=== PATIENT | male | born 1995 | race Two or more races ===

== ENCOUNTER 2018-11-18 16:48 | Emergency (ER) | payer OTHER ==
[~2018-11-18] VITALS: Ht 167.6 cm; Wt 63.6 kg
[2018-11-18 18:38] LABS: BASO % 0.3 % (0.0-1.0); EOS # 0.1 10^3/uL (0.0-0.50); EOS % 1.3 % (0.0-3.0); HEMATOCRIT 44.1 % (42.0-52.0); HEMOGLOBIN 14.9 g/dl (13.5-17.5); LYMPH # 1.6 10^3/uL (1.5-6.5); LYMPH % 26.4 % (24.0-44.0); MEAN CORPUSCULAR HEMOGLOBIN 29.1 pg (27.0-33.0); MEAN CORPUSCULAR HGB CONC 33.8 g/dl (32.0-36.5); MEAN CORPUSCULAR VOLUME 86.1 fl (80.0-96.0); MONO # 0.4 10^3/uL (0.0-0.8); NEUTROPHILS # 3.9 10^3/uL (1.8-7.7); NEUTROPHILS % 64.7 % (36.0-66.0); PLATELET COUNT, AUTOMATED 243 10^3/uL (150-450); RED BLOOD COUNT 5.12 10^6/uL (4.30-6.10); WHITE BLOOD COUNT 6.1 10^3/uL (4.0-10.0)
[2018-11-18 19:08] LABS: ALBUMIN 4.7 GM/DL (3.2-5.2); ALT/SGPT 24 U/L (12-78); BILIRUBIN,DIRECT 0.4 MG/DL (0.0-0.2); BILIRUBIN,TOTAL 1.6 MG/DL (0.2-1.0); BLOOD UREA NITROGEN 12 MG/DL (7-18); CALCIUM LEVEL 9.8 MG/DL (8.5-10.1); CARBON DIOXIDE LEVEL 29 MEQ/L (21-32); CHLORIDE LEVEL 106 MEQ/L (98-107); CREATININE FOR GFR 1.28 MG/DL (0.70-1.30); GLOMERULAR FILTRATION RATE > 60.0 (>60); GLUCOSE, FASTING 102 MG/DL (70-100); POTASSIUM SERUM 4.4 MEQ/L (3.5-5.1); SODIUM LEVEL 140 MEQ/L (136-145); TOTAL PROTEIN 7.9 GM/DL (6.4-8.2)
[2018-11-18] MEDS ORDERED: NS 1,000 ML IV ONE (20:15)
[2018-11-18 20:32] LABS: CK-MB VALUE MASS 1.3 NG/ML (<3.6); CPK CREATINE PHOSPHOKINASE 203 U/L (39-308); FREE T4 1.15 NG/DL (0.76-1.46); MAGNESIUM LEVEL 2.5 MG/DL (1.8-2.4); MB/CK RELATIVE INDEX 0.64 (< OR =4); TROPONIN I < 0.02 NG/ML (< 0.10)
--- NOTE | 2018-11-18 20:48 | REPVR ---
EXAM: CT Head Without Contrast EXAM DATE/TIME: 11/18/2018 8:08 PM CLINICAL HISTORY: 23 years old, male; Syncope and collapse TECHNIQUE: Imaging protocol: Computed tomography images of the head without contrast. Radiation optimization: All CT scans at this facility use at least one of these dose optimization techniques: automated exposure control; mA and/or kV adjustment per patient size (includes targeted exams where dose is matched to clinical indication); or iterative reconstruction. COMPARISON: No relevant prior studies available. FINDINGS: Brain: Unremarkable. No hemorrhage. No significant white matter disease. No edema. Ventricles: Unremarkable. No ventriculomegaly. Bones/joints: Unremarkable. No acute fracture. Sinuses: Visualized sinuses are unremarkable. No fluid levels. Mastoid air cells: Visualized mastoid air cells are well aerated. No mastoid effusion. Soft tissues: Unremarkable. IMPRESSION: No acute abnormality. Electronically signed by: Luis Jolly On 11/18/2018 20:48:14 PM
--- NOTE | 2018-11-18 20:52 | REPVR ---
EXAM: CT Cervical Spine Without Contrast EXAM DATE/TIME: 11/18/2018 8:08 PM CLINICAL HISTORY: 23 years old, male; Injury or trauma; Fall; Initial encounter; Blunt trauma; Additional info: Syncope TECHNIQUE: Imaging protocol: Computed tomography images of the cervical spine without contrast. Coronal and sagittal reformatted images were created and reviewed. Radiation optimization: All CT scans at this facility use at least one of these dose optimization techniques: automated exposure control; mA and/or kV adjustment per patient size (includes targeted exams where dose is matched to clinical indication); or iterative reconstruction. COMPARISON: No relevant prior studies available. FINDINGS: Vertebrae: No acute fracture. Normal alignment. Discs/Spinal canal/Neural foramina: No raquel spinal stenosis. No bony neural foraminal narrowing. Soft tissues: Unremarkable. Lungs: Lung apices are clear. IMPRESSION: No acute findings. Electronically signed by: Luis Jolly On 11/18/2018 20:51:34 PM
--- NOTE | 2018-11-18 21:21 | REPVR ---
EXAM: US Abdomen Limited, Right Upper Quadrant EXAM DATE/TIME: 11/18/2018 9:05 PM CLINICAL HISTORY: 23 years old, male; Abdominal pain; Epigastric; Additional info: Ruq pain/vomiting TECHNIQUE: Imaging protocol: Real-time ultrasound of the abdomen with image documentation. Examination was focused on the right upper quadrant. COMPARISON: No relevant prior studies available. FINDINGS: Liver: Unremarkable as visualized. No masses. Gallbladder: Normal. No gallstones. There is no gallbladder wall thickening. Common bile duct: Normal. No stones. No dilation. The common bile duct measures 3.4 mm. Pancreas: The pancreas is inadequate to visualize secondary to overlying bowel gas and limited sonographic penetration. Right kidney: Unremarkable. No mass. No hydronephrosis. IMPRESSION: No acute findings. Electronically signed by: Luis Jolly On 11/18/2018 21:20:45 PM
[2018-11-19 01:11] VITALS: BP 119/68
--- NOTE | 2018-11-20 07:56 | ECGEPIP ---
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
== END 2018-11-19 01:13 | disposition home or self-care (01) ==
LOC: M ED 16:48
DX: R55 Syncope and collapse (principal); R10.11 Right upper quadrant pain; R11.10 Vomiting, unspecified; R00.1 Bradycardia, unspecified; B19.20 Unspecified viral hepatitis C without hepatic coma; R53.83 Other fatigue; M54.2 Cervicalgia; F17.210 Nicotine dependence, cigarettes, uncomplicated

== ENCOUNTER 2018-11-26 16:46 | Emergency (ER) | payer OTHER ==
[~2018-11-26] VITALS: Ht 167.6 cm; Wt 63.6 kg
[2018-11-26 17:37] LABS: HEMATOCRIT 41.5 % (42.0-52.0); MEAN CORPUSCULAR HEMOGLOBIN 29.6 pg (27.0-33.0); MEAN CORPUSCULAR HGB CONC 33.7 g/dl (32.0-36.5); MEAN CORPUSCULAR VOLUME 87.7 fl (80.0-96.0); PLATELET COUNT, AUTOMATED 213 10^3/uL (150-450); RED BLOOD COUNT 4.73 10^6/uL (4.30-6.10)
[2018-11-26 18:07] LABS: ALBUMIN 4.2 GM/DL (3.2-5.2); ALT/SGPT 21 U/L (12-78); BILIRUBIN,TOTAL 0.4 MG/DL (0.2-1.0); BLOOD UREA NITROGEN 10 MG/DL (7-18); CARBON DIOXIDE LEVEL 28 MEQ/L (21-32); CHLORIDE LEVEL 105 MEQ/L (98-107); CREATININE FOR GFR 0.99 MG/DL (0.70-1.30); GLOMERULAR FILTRATION RATE > 60.0 (>60); GLUCOSE, FASTING 83 MG/DL (70-100); POTASSIUM SERUM 3.7 MEQ/L (3.5-5.1); SODIUM LEVEL 140 MEQ/L (136-145); TOTAL PROTEIN 6.9 GM/DL (6.4-8.2)
[2018-11-26] MEDS ORDERED: ISOVUE-370 76% 100ML VIAL (Q9967) As Ordered ONE (20:22)
--- NOTE | 2018-11-26 20:25 | ECGEPIP ---
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
[2018-11-26 21:04] LABS: HEMOGLOBIN A1c 5.5 %
[2018-11-26 22:15] VITALS: BP 118/83
--- NOTE | 2018-11-26 22:58 | REPVR ---
EXAM: CT Abdomen and Pelvis With Contrast EXAM DATE/TIME: 11/26/2018 9:05 PM CLINICAL HISTORY: 23 years old, male; Abdominal pain; Generalized; Additional info: Abd pain/vomiting TECHNIQUE: Imaging protocol: Axial computed tomography images of the abdomen and pelvis with intravenous contrast. Coronal and sagittal reformatted images were created and reviewed. Radiation optimization: All CT scans at this facility use at least one of these dose optimization techniques: automated exposure control; mA and/or kV adjustment per patient size (includes targeted exams where dose is matched to clinical indication); or iterative reconstruction. Contrast material: ISOVUE 370;Contrast volume: 100 ml;Contrast route: IV; COMPARISON: US Abdomen 11/18/2018 9:01 PM FINDINGS: Lungs: Clear lung bases. Heart: Normal size heart. No evidence of pericardial effusion. Liver: Normal appearing liver. Gallbladder and bile ducts: Normal common bile duct. Normal gallbladder. Pancreas: Normal pancreas. Spleen: Normal appearing spleen. Adrenals: Normal adrenal glands. Kidneys and ureters: There is opacification of the right and left kidney. Stomach and bowel: The cecum is in the right pelvis. There is no evidence of inflammation along the margins of the cecum. Small amount of secretions and small bowel which may be the result of mild ileus or enteritis. Intraperitoneal space: There is no evidence of pneumoperitoneum. There is no evidence of free fluid in the abdomen or pelvis. Vasculature: There is opacification of the aorta which appears intact. Lymph nodes: There are a few small lymph nodes scattered throughout the mesentery. Small lymph nodes are following the aorta. Bladder: Moderate distention of the urinary bladder. Reproductive: Normal size prostate. Small cyst in the prostate. Bones/joints: No acute fracture. No dislocation. Soft tissues: Unremarkable. IMPRESSION: 1. Mild amount of secretions and small bowel could be mild ileus or enteritis. 2. Moderate distention of the urinary bladder. 3. Scattered small lymph nodes in the mesentery on the right could be due to adenitis. Electronically signed by: Chai Lino On 11/26/2018 22:57:25 PM
[2018-11-26 23:17] LABS: AMPHETAMINES LEVEL URINE NEGATIVE (NEGATIVE); BARBITURATES URINE NEGATIVE (NEGATIVE); BENZODIAZEPINES URINE NEGATIVE (NEGATIVE); CANNABINOIDS URINE NEGATIVE (NEGATIVE); COCAINE METABOLITE URINE NEGATIVE (NEGATIVE); METHADONE URINE NEGATIVE (NEGATIVE); OPIATES URINE NEGATIVE (NEGATIVE); PHENCYCLIDINE URINE NEGATIVE (NEGATIVE)
== END 2018-11-26 23:54 | disposition home or self-care (01) ==
LOC: M ED 16:46
DX: K52.9 Noninfective gastroenteritis and colitis, unspecified (principal); B19.20 Unspecified viral hepatitis C without hepatic coma
CPT/HCPCS: 36415; 74177; 80053; 80307; 81001; 83036; 85027; 93005; 99284; Q9967

== ENCOUNTER → 2018-12-09 | Outpatient (REF) | payer OTHER ==
[2018-12-09 14:18] LABS: ALBUMIN 4.7 GM/DL (3.2-5.2); ALT/SGPT 23 U/L (12-78); BILIRUBIN,DIRECT 0.3 MG/DL (0.0-0.2); BILIRUBIN,TOTAL 1.3 MG/DL (0.2-1.0); C REACTIVE PROTEIN QUANTITATIV < 0.30 MG/DL (0.00-0.30); TOTAL PROTEIN 7.8 GM/DL (6.4-8.2)
[2018-12-14 14:58] LABS: HEPATITIS C QUANTITATION HCV Not Detected IU/mL (.); Lyme Disease IgG/IgM Antibodie <0.91 ISR (0.00-0.90); Lyme Disease IgM Ab Quantitati <0.80 index (0.00-0.79)
== END ==
LOC: M SFHCPLAZ 10:00
PROVIDERS: ATTEND Internal Medicine Infectious Disease
DX: R10.13 Epigastric pain (principal); G44.52 New daily persistent headache (NDPH)
CPT/HCPCS: 36415; 80076; 85652; 86140; 86617; 86803; 87522; 87902; G0463

== ENCOUNTER 2019-02-27 08:52 | Inpatient (IN) | payer OTHER ==
[~2019-02-27] VITALS: Ht 167.6 cm; Wt 63.6 kg
[2019-02-27 09:47] LABS: HEMATOCRIT 42.7 % (42.0-52.0); HEMOGLOBIN 13.7 g/dl (13.5-17.5); MEAN CORPUSCULAR HEMOGLOBIN 28.8 pg (27.0-33.0); MEAN CORPUSCULAR HGB CONC 32.1 g/dl (32.0-36.5); MEAN CORPUSCULAR VOLUME 89.7 fl (80.0-96.0); PLATELET COUNT, AUTOMATED 259 10^3/uL (150-450); RED BLOOD COUNT 4.76 10^6/uL (4.30-6.10); WHITE BLOOD COUNT 4.2 10^3/uL (4.0-10.0)
[2019-02-27 10:25] LABS: AMPHETAMINES LEVEL URINE NEGATIVE (NEGATIVE); BARBITURATES URINE NEGATIVE (NEGATIVE); BENZODIAZEPINES URINE NEGATIVE (NEGATIVE); CANNABINOIDS URINE NEGATIVE (NEGATIVE); COCAINE METABOLITE URINE NEGATIVE (NEGATIVE); METHADONE URINE NEGATIVE (NEGATIVE); OPIATES URINE NEGATIVE (NEGATIVE); PHENCYCLIDINE URINE NEGATIVE (NEGATIVE)
[2019-02-27 10:36] LABS: ACETAMINOPHEN LEVEL < 2.0 UG/ML (10.0-30.0); ALBUMIN 4.1 GM/DL (3.2-5.2); ALT/SGPT 27 U/L (12-78); BILIRUBIN,DIRECT 0.2 MG/DL (0.0-0.2); BILIRUBIN,TOTAL 0.6 MG/DL (0.2-1.0); BLOOD UREA NITROGEN 16 MG/DL (7-18); CALCIUM LEVEL 9.1 MG/DL (8.5-10.1); CARBON DIOXIDE LEVEL 27 MEQ/L (21-32); CHLORIDE LEVEL 107 MEQ/L (98-107); CREATININE FOR GFR 1.05 MG/DL (0.70-1.30); ETHYL ALCOHOL (ETHANOL) < 0.003 % (0.000-0.010); GLOMERULAR FILTRATION RATE > 60.0 (>60); GLUCOSE, FASTING 79 MG/DL (70-100); SALICYLATE LEVEL < 1.7 MG/DL (5.0-30.0); SODIUM LEVEL 140 MEQ/L (136-145); THYROID STIMULATING HORMONE 0.951 uIU/ML (0.358-3.740); TOTAL PROTEIN 7.1 GM/DL (6.4-8.2)
[2019-02-27] MEDS ORDERED: MAALOX 30 ML SUSP *UDC PO PRN (12:00)
[2019-02-27] MEDS ORDERED: ACETAMINOPHEN TAB 650MG DOSE (2X325MG) PO PRN (12:00)
[2019-02-27] MEDS ORDERED: traZODone 50 MG TAB PO PRN (12:00)
[2019-02-27] MEDS ORDERED: MOM 30ML SUSPENSION UDC PO PRN (12:00)
[2019-02-27 13:52] VITALS: BP 114/70
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
[2019-02-28 06:42] VITALS: BP 128/75
[2019-02-28] MEDS: hydrOXYzine 25 MG TAB PO PRN ×2 (12:55→18:56)
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
[2019-02-28] MEDS ORDERED: SERTRALINE HCL 25 MG TABLET PO ONE (13:00)
[2019-02-28 15:29] VITALS: BP 118/59
[2019-03-01 06:51] VITALS: BP 145/70
[2019-03-01] MEDS ORDERED: SERTRALINE HCL 25 MG TABLET PO SCH (09:00)
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
[2019-03-01 18:15] VITALS: BP 139/65
[2019-03-02 06:35] VITALS: BP 112/62
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
[2019-03-02] MEDS: hydrOXYzine 25 MG TAB PO PRN (09:19)
[2019-03-02] MEDS: SERTRALINE HCL 25 MG TABLET PO SCH (20:34)
[2019-03-03 06:47] VITALS: BP 135/67
--- NOTE | 2019-03-03 10:17 | MHIPNPDOC ---
[facility] Progress Note Progress Note DATE OF SERVICE: 03/03/19 HISTORY: Patient is a 23 -year-old Mixed, AD, male, with no previous psych history who was brought to [facility] by MP after pt called suicide hotline from the [facility] endorsing SI. Once in ED pt endorsed depression, anxiety, insomnia, poor appetite, isolation to the [facility] for the past 4months due to psychological stressors of being accidently diagnosed with HIV in 12/2018 while at [facility] (tested again and it's negative), recent Article 15 for passing counterfeit money he found on the ground, guilt over friend passing away in MVA due to drug abuse recently, dislike for the , and his mother not listening to him just telling him "you're homesick" when he talks to her on the phone. Stated the day prior to admission he attempted to walk infront of traffic but a car going by missed him and having thoughts of SI with plan to OD on pain meds and tylenol in the ED, per ED. Pt seen and he endorses depression mostly due to current psychological stressors. Also endorses stage fright anxiety as recently yelled at by [place] when had to read fire document out loud. Endorses low confidence due to thoughts others may be having about him. Discussed starting zoloft for depression and prn vistaril for anxiety, risks/benefits discussed. Talk to pt regarding coping mechanisms for his low confidence to other people's thoughts of him and encouraged pt to attend groups to learn coping mechanisms for anxiety and depre ssion. Currently, denies SI/HI, hallucination, delusions. Feels safe here. VITAL SIGNS: See below. NEW TEST RESULTS: See below. CURRENT MEDICATIONS: See below. MENTAL STATUS EXAMINATION: General Appearance: well groomed, appears stated age, hospital scrubs/clothing Build: average Demeanor: average Eye Contact: average Activity: average, less anxious Behavior: cooperative Speech: clear, spontaneous, reg/rate,rhythm,volume Mood: more euthymic, less anxious Mood "good" Affect: more full, congruent, less anxious Thought Process: logical/linear, less depressed, intact Thought Content (Delusions): none reported, denies SI, HI, AVH Thought Content (Other): none reported, appropriate Thought Content (Aggressive): none reported Perception (Hallucinations): none reported Perception (Other): none reported Cognition (Impairment of): none reported Cognition(Intelligence Est.): average Oriented: Awake, Alert, Oriented times three Insight: fair Judgment: Fair Psychosis: Denies DIAGNOSES: Depression Unspecified Anxiety Unspecified ASSESSMENT:Pt seen and states that his mood is "good" today and that his anxiety continues to improve, only taking vistaril once yesterday. States he attending groups and learning coping mechanisms that he finds helpful. 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 Feels that he's tolerating zoloft and feels is beneficial. States he slept well last night. Feels he is tolerating his medications and they're beneficial. He denies SI/HI, hallucinations, delusions. Pt feels safe here. MANAGEMENT PLAN: d/c tomorrow medications: zoloft 25mg qhs vistaril 25 mg q6hr prn anxiety trazodone 50mg qhs prn insomnia TIME SPENT: 30 minutes. Vital Signs Vital Signs Date Time Temp Pulse Resp B/P (MAP) Pulse Ox O2 Delivery O2 Flow Rate FiO2 03/03/19 06:47 99.6 73 12 135/67 (89) Room Air 02/27/19 09:13 97 Current Medications Current Medications Medications (Trade) Dose Ordered Sig/Sunshine Route PRN Reason Start Time Stop Time Status Last Admin Dose Admin Acetaminophen (Tylenol Tab) 650 mg Q6HP PRN PO HEADACHE or DISCOMFORT 02/27/19 12:00 03/01/19 20:00 Al Hydrox/Mg Hydrox/Simethicone (Mylanta) 30 ml Q4HP PRN PO HEARTBURN/INDIGESTION 02/27/19 12:00 Home Med (Med Rec Complete!) ASDIRECTED XX 02/27/19 10:30 02/27/19 10:26 DC Hydroxyzine HCl (Atarax) 25 mg Q6HP PRN PO ANXIETY 02/28/19 12:30 03/02/19 09:19 Magnesium Hydroxide (Milk Of Magnesia) 30 ml DAILYPRN PRN PO CONSTIPATION 02/27/19 12:00 Sertraline HCl (Zoloft) 25 mg DAILY PO 03/01/19 09:00 03/01/19 09:19 DC 03/01/19 08:23 Sertraline HCl (Zoloft) 25 mg QHS PO 03/02/19 21:00 03/02/19 20:34 Trazodone HCl (Desyrel) 50 mg QHSP PRN PO INSOMNIA 02/27/19 12:00 Allergies Coded Allergies: No Known Allergies (Unverified , 11/18/18) GANESH SEAMAN DO Mar 03, 2019 10:17 am
[2019-03-03] MEDS: hydrOXYzine 25 MG TAB PO PRN (15:47)
[2019-03-03 18:00] VITALS: BP 138/76
[2019-03-03] MEDS: SERTRALINE HCL 25 MG TABLET PO SCH (21:15)
[2019-03-04 06:21] VITALS: BP 119/63
[2019-03-04] MEDS ORDERED: HYDR-3363 PO (09:40)
[2019-03-04] MEDS ORDERED: SERT25TA21 PO (09:40)
[2019-03-04] MEDS ORDERED: TRAZ-252 PO (09:40)
--- NOTE | 2019-03-04 09:41 | MHDSPDOC ---
[facility] Discharge Summary Discharge Summary DATE OF ADMISSION: Feb 27, 2019 at 11:54 am DATE OF DISCHARGE: Mar 04, 2019 DISCHARGE DIAGNOSES: Depression Unspecified Anxiety Unspecified REASON FOR ADMISSION: Patient is a 23 -year-old Mixed, AD, male, with no previous psych history who was brought to [facility] by MP after pt called suicide hotline from the [facility] endorsing SI. Once in ED pt endorsed depression, anxiety, insomnia, poor appetite, isolation to the [facility] for the past 4months due to psychological stressors of being accidently diagnosed with HIV in 12/2018 while at [facility] (tested again and it's negative), recent Article 15 for passing counterfeit money he found on the ground, guilt over friend passing away in MVA due to drug abuse recently, dislike for the , and his mother not listening to him just telling him "you're homesick" when he talks to her on the phone. Stated the day prior to admission he attempted to walk in front of traffic but a car going by missed him and having thoughts of SI with plan to OD on pain meds and tylenol in the ED, per ED. Pt seen and he endorses depression mostly due to current psychological stressors. Also endorses stage fright anxiety as recently yelled at by [place] when had to read fire document out loud. Endorses low confidence due to thoughts others may be having about him. Discussed starting zoloft for depression and prn vistaril for anxiety, risks/benefits discussed. Talk to pt regarding coping mechanisms for his low confidence to other people's thoughts of him and encouraged pt to attend groups to learn coping mechanisms for anxiety and depression. Currently, denies SI/HI, hallucination, delusions. Feels safe here. CONSULTANTS INVOLVED: none TREATMENT AND PROGRESS ON THE UNIT :Pt was admitted to [facility], seen for psychiatric assessment and started on zoloft 25mg daily for mood and anxiety. He was provided vistaril 25mg q6hr prn anxiety and trazodone 50mg qhs prn insomnia. Pt found his medications beneficial and tolerated them well. He attended groups daily during his stay. His symptoms improved with treatment. On day of discharge he denied depression, anxiety, insomnia, SI/HI, hallucinations, delusions. He was discharged home after [place] meeting with foll ow-up at [facility]. He felt safe for discharge with his [place]. DISCHARGE ASSESSMENT: Pt seen and states that his mood is "good" and that he's looking forward to going home with his [place] today. States his anxiety and mood are greatly improved with treatment. States he attending groups and learning coping mechanisms that he finds helpful. 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 Feels that he's tolerating zoloft and vistaril wel and feels they're beneficial. States he slept well last night. He denies depression, anxiety, insomnia, SI/HI, hallucinations, delusions. Pt feels safe to d/c home with his [place] today. MENTAL STATUS EXAMINATION ON DISCHARGE: General Appearance: well groomed, appears stated age, hospital scrubs/clothing Build: average Demeanor: average Eye Contact: average Activity: average Behavior: cooperative Speech: clear, spontaneous, reg/rate,rhythm,volume Mood: euthymic, full range Mood "good" Affect: full range, congruent Thought Process: logical/linear, intact Thought Content (Delusions): none reported, denies SI, HI, AVH Thought Content (Other): none reported, appropriate Thought Content (Aggressive): none reported Perception (Hallucinations): none reported Perception (Other): none reported Cognition (Impairment of): none reported Cognition(Intelligence Est.): average Oriented: Awake, Alert, Oriented times three Insight: good Judgment: good Psychosis: Denies MEDICATIONS ON DISCHARGE: zoloft 25mg daily vistaril 25mg q6hr prn anxiety trazodone 50mg qhs prn insomnia PLAN/FOLLOWUP ARRANGEMENTS: D/c home with [place] with follow-up FD. The amount of time spent in the coordination of care for this patient was approximately 30 minutes. Vital Signs/I&Os Vital Signs Date Time Temp Pulse Resp B/P (MAP) Pulse Ox O2 Delivery O2 Flow Rate FiO2 03/04/19 06:21 98.8 63 16 119/63 (81) 03/03/19 06:47 Room Air 02/27/19 09:13 97 Medications Scheduled Sertraline HCl (Sertraline HCl) 25 Mg Tablet, 25 MG PO QHS for mood, #10 Scheduled PRN Hydroxyzine HCl (Hydroxyzine HCl) 25 Mg Tablet, 25 MG PO Q6HP PRN for ANXIETY, #30 Trazodone HCl (Trazodone HCl) 50 Mg Tablet, 50 MG PO QHSP PRN for INSOMNIA, #10 Allergies Coded Allergies: No Known Allergies (Unverified , 11/18/18) GANESH SEAMAN DO Mar 04, 2019 9:41 am
== END 2019-03-04 10:30 | disposition home or self-care (01) | DRG 881 ==
LOC: M ED 08:52 → M ED INP 11:54 → M PSY 13:19
PROVIDERS: ADMIT Psychiatry & Neurology Psychiatry; ATTEND Psychiatry & Neurology Psychiatry
DX: F32.9 Major depressive disorder, single episode, unspecified (principal); F41.9 Anxiety disorder, unspecified; Z87.891 Personal history of nicotine dependence

== ENCOUNTER 2019-03-08 09:24 | Inpatient (IN) | payer OTHER ==
[~2019-03-08] VITALS: Ht 167.6 cm; Wt 60.5 kg
[~2019-03-08 09:24] MED LIST: HYDR-3363 PO; SERT25TA21 PO; TRAZ-252 PO
[2019-03-08] MEDS ORDERED: IBUPROFEN 800 MG TAB PO ONE (10:30)
[2019-03-08] MEDS ORDERED: ONDANSETRON 4 MG ORAL DISINTEGRATING TAB (Q0162 PER 1MG) PO ONE (10:30)
[2019-03-08 10:47] LABS: BASO % 0.2 % (0.0-1.0); EOS # 0.1 10^3/uL (0.0-0.5); EOS % 1.3 % (0.0-3.0); HEMATOCRIT 43.1 % (42.0-52.0); HEMOGLOBIN 14.2 g/dl (13.5-17.5); LYMPH # 1.8 10^3/uL (1.5-5.0); MEAN CORPUSCULAR HEMOGLOBIN 29.3 pg (27.0-33.0); MEAN CORPUSCULAR HGB CONC 32.9 g/dl (32.0-36.5); MEAN CORPUSCULAR VOLUME 88.9 fl (80.0-96.0); MONO # 0.4 10^3/uL (0.0-0.8); MONO % 7.9 % (0.0-5.0); NEUTROPHILS # 2.6 10^3/uL (1.5-8.5); NEUTROPHILS % 53.2 % (36.0-66.0); PLATELET COUNT, AUTOMATED 245 10^3/uL (150-450); RED BLOOD COUNT 4.85 10^6/uL (4.30-6.10); WHITE BLOOD COUNT 4.8 10^3/uL (4.0-10.0)
[2019-03-08 11:18] LABS: ACETAMINOPHEN LEVEL < 2.0 UG/ML (10.0-30.0); ALBUMIN 4.2 GM/DL (3.2-5.2); ALT/SGPT 36 U/L (12-78); BILIRUBIN,DIRECT 0.2 MG/DL (0.0-0.2); BILIRUBIN,TOTAL 0.8 MG/DL (0.2-1.0); BLOOD UREA NITROGEN 16 MG/DL (7-18); CALCIUM LEVEL 9.3 MG/DL (8.5-10.1); CARBON DIOXIDE LEVEL 27 MEQ/L (21-32); CHLORIDE LEVEL 106 MEQ/L (98-107); CREATININE FOR GFR 1.11 MG/DL (0.70-1.30); GLOMERULAR FILTRATION RATE > 60.0 (>60); GLUCOSE, FASTING 82 MG/DL (70-100); POTASSIUM SERUM 3.9 MEQ/L (3.5-5.1); SALICYLATE LEVEL < 1.7 MG/DL (5.0-30.0); SODIUM LEVEL 141 MEQ/L (136-145); TOTAL PROTEIN 7.5 GM/DL (6.4-8.2)
[2019-03-08 12:11] LABS: ETHYL ALCOHOL (ETHANOL) < 0.003 % (0.000-0.010)
[2019-03-08 12:17] LABS: AMPHETAMINES LEVEL URINE NEGATIVE (NEGATIVE); BARBITURATES URINE NEGATIVE (NEGATIVE); BENZODIAZEPINES URINE NEGATIVE (NEGATIVE); CANNABINOIDS URINE NEGATIVE (NEGATIVE); COCAINE METABOLITE URINE NEGATIVE (NEGATIVE); METHADONE URINE NEGATIVE (NEGATIVE); OPIATES URINE NEGATIVE (NEGATIVE); PHENCYCLIDINE URINE NEGATIVE (NEGATIVE)
[2019-03-08] MEDS ORDERED: IBUPROFEN 600 MG TAB PO ONE (13:45)
--- NOTE | 2019-03-08 14:16 | ED PDOC ---
Provider Note David Hogan MRN: N/A Date of : N/A Date of Service: 03/08/2019 Summary The patient was met with for a [id number]. Shortly, the patient is a 23-year-old man with a reported history of depression, presenting recently after being discharged from Dr. Kuo' service. He reports having some visual hallucinations after being started on sertraline, however these are indescript. He does report increasing depression with suicidal thoughts, jump in front of a car. He describes that these have gotten worse and more intense and that he is unclear of how to deal with them. He appears dysthymic and tired, curled up in a ball in the ER at this time. Mental Status Exam: The patient is laying in bed, poor hygiene, dysthymic affect, linear thought process. Admits to suicidal thoughts. Denies homicidal thoughts, auditory hallucinations. Appears to have limited insight and judgment. Concentration and focus appear to be mildly impaired. No MSK or neurological defects found. His associations and perception appear clear. He is alert and oriented x3. Assessment and Plan: Unspecified depression: Will admit out of an abundance of caution and restart on home medications to assess further. Does not appear to be demonstrating signs of visual hallucinations. Will ascertain whether there is any concern for malingering, as this is a potential concern due to his current pending Article 15. Time spent: 25 minutes. RashmiOLENA Betancourt DO Mar 08, 2019 14:16
[2019-03-08] MEDS ORDERED: HYDR-3363 PO (14:35)
[2019-03-08] MEDS ORDERED: SERT25TA21 PO (14:35)
[2019-03-08] MEDS ORDERED: TRAZ1TAB10 PO (14:35)
[2019-03-08] MEDS ORDERED: MOM 30ML SUSPENSION UDC PO PRN (15:00)
[2019-03-08] MEDS ORDERED: ACETAMINOPHEN TAB 650MG DOSE (2X325MG) PO PRN (15:00)
[2019-03-08] MEDS ORDERED: MAALOX 30 ML SUSP *UDC PO PRN (15:00)
[2019-03-08 15:35] VITALS: BP 139/60
[2019-03-08] MEDS: traZODone 50 MG TAB PO PRN (20:26)
[2019-03-08] MEDS: SERTRALINE HCL 25 MG TABLET PO SCH (20:26)
[2019-03-09 06:55] VITALS: BP 106/59
--- NOTE | 2019-03-09 08:47 | ECGEPIP ---
[facility] - ED Test Date: 2019-03-08 Pat Name: ELIAS HAMMONDS Department: Room: - Gender: Male Crane Engineer: : 1995 Requested By: DC RUFFIN PA-C. Order Number: [id number] Reading MD: Rafi Colunga Measurements Intervals [place] Rate: 52 P: 64 IA: 187 QRS: 74 QRSD: 90 T: 70 QT: 473 QTc: 441 Interpretive Statements SINUS BRADYCARDIA BENIGN EARLY REPOLARIZATION SIMILAR TO 11/26/18 Electronically Signed on 03-09-2019 8:46:42 EST by Rafi Colunga
--- NOTE | 2019-03-09 10:08 | MHHPEPDOC ---
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 The patient is admitted out of an abundance of caution, has his chain of command does report that he is quite isolative and does not engage. The patient was recently admitted due to similar problem started on sertraline. The patient when met with does describe some vague symptoms of depression such as hopelessness, helplessness, insomnia, and difficulty coping with stressors. When I met with the patient interestingly enough he had reported that he had no side effects from his sertraline once he had came to our unit. He has been more social and engaged with other patients on the unit. However, he does still have a dysthymic affect at times. He reports fleeting suicidal thoughts at times. There has been concerns raised that he could be presenting for secondary gain as he is potentially being discharged from the under article 15 for forgery. The patient reports vague auditory hallucinations that he is unable to describe that does appear consistent with any psychotic phenomenon. Otherwise, the patient reports that he is amenable to staying over the weekend. Review Of Systems Depression: As above. Anxiety: The patient denies any excessive worry associated with physical symptoms. They deny any experience of discreet panic in the past. Jeri: The patient denies any episodes of euphoria/dysphoria associated with decreased need for sleep, hedonism, talkatively or impulsivity lasting longer than 5 days. Psychotic: As above. Trauma: The patient denies any traumatic events associated with nightmares or intrusive thoughts. Borderline: The patient screens negative for borderline personality at this junction. Past Psychiatric History Has a history of reported suicidal gestures of "walking in front of a car" several years ago. He has no other admissions other than the aforementioned admission several days ago and is currently on sertraline, hydroxyzine, and trazodone. His previous diagnoses appear to unspecified depression and anxiety. Allergies Please see below. Family Psychiatric History Social History The patient was born and raised in [place] by his mother with 2 siblings and reports a good childhood without trauma or violence. Currently lives in the [facility], high school grad, [employer], primary support by mother. Currently pending legal trouble for article 15 for counterfeit money. He is single, never with no children. Substance Abuse History The patient denies any excessive alcohol use, tobacco or illicit drug use, denies history of substance use treatment. Medical History Reports "short gut syndrome." Mental Status Examination General: Well dressed with good hygiene Speech: Spontaneous and fluid Thought processes: Linear and logical MSK: Smooth and coordinated gait, no signs of tremors or involuntary orofacial movements Thought content: Mild hopelessness. Abstract reasoning, and computation: Intact Description of associations: Intact Description of abnormal or psychotic thoughts: Admits to fleeting SI at times, but none at this moment. Denies homicidal ideations. Denies auditory or visual hallucinations at this point. Does not appear to be responding to internal stimuli. Judgment: fair Insight: fair Orientation: Alert and orientated 3 Cognition: Grossly normal Recent and remote memory: Intact Attention span and concentration: Intact Fund of knowledge: Adequate Mood: "okay" Affect: Mildly dysthymic with a constricted range. Diagnoses Unspecified depressive disorder. Assessment and Plan Unspecified depressive disorder: Continue sertraline, hydroxyzine, trazodone. Denies having side effects at this time. Unclear if malingering or if genuinely depressed due to situation. Disposition The patient will need a further inpatient admission likely lasting longer than 2 midnights in order to treat his suicidal thoughts and possible depression. Problem List 1. Risk for suicide. 2. Depression. 3. Ineffective coping. Initial Treatment Plan 1. Patient was admitted on a 9.39 legal status. 2. Complete history was obtained. 3. With patients permission, family will be contacted and database will be expanded. 4. Patients medication regimen will be reviewed and changed accordingly. 5. Patient will be provided with protected environment. 6. Patient will be treated with individual, group, and milieu therapies. 7. Patient will receive supportive psych-education. 8. Discharge planning will commence immediately. 9. Outpatient follow-up treatment will be strongly recommended. 10. The initial treatment plan will focus initially on: Estimated Length Of Stay 4 days. Time Spent 70 minutes. Thursday Vital Signs Vital Signs Date Time Temp Pulse Resp B/P (MAP) Pulse Ox O2 Delivery O2 Flow Rate FiO2 03/09/19 06:55 98.5 63 16 106/59 (75) 03/08/19 15:35 100 Room Air Laboratory Data 24H Labs Laboratory Tests 2 03/08/19 10:33: Immature Granulocyte % (Auto) 0.4, Neutrophils (%) (Auto) 53.2, Lymphocytes (%) (Auto) 37.0, Monocytes (%) (Auto) 7.9H, Eosinophils (%) (Auto) 1.3, Basophils (%) (Auto) 0.2, Neutrophils # (Auto) 2.6, Lymphocytes # (Auto) 1.8, Monocytes # (Auto) 0.4, Eosinophils # (Auto) 0.1, Basophils # (Auto) 0.0, Nucleated Red Blood Cells % (auto) 0.0, Anion Gap 8, Glomerular Filtration Rate > 60.0, Calcium Level 9.3, Total Bilirubin 0.8, Direct Bilirubin 0.2, Aspartate Amino Transf (AST/SGOT) 8, Alanine Aminotransferase (ALT/SGPT) 36, Alkaline Phosphatase 51, Total Protein 7.5, Albumin 4.2, Albumin/Globulin Ratio 1.27, Salicylates Level < 1.7L, Acetaminophen Level < 2.0L, Ethyl Alcohol Level < 0.003 03/08/19 11:30: Urine Opiates Screen NEGATIVE, Urine Methadone Screen NEGATIVE, Urine Bar biturates Screen NEGATIVE, Urine Phencyclidine Screen NEGATIVE, Urine Amphetamines Screen NEGATIVE, Urine Benzodiazepines Screen NEGATIVE, Urine Cocaine Metabolite Screen NEGATIVE, Urine Cannabinoids Screen NEGATIVE CBC/BMP Laboratory Tests 03/08/19 10:33 Medications Scheduled Sertraline HCl (Sertraline HCl) 25 Mg Tablet, 25 MG PO QHS, (Reported) Scheduled PRN Hydroxyzine HCl (Hydroxyzine HCl) 25 Mg Tablet, 25 MG PO Q6H PRN for ANXIETY, (Reported) Trazodone HCl (Trazodone HCl) 50 Mg Tablet, 50 MG PO QHS PRN for INSOMNIA, (Reported) Allergies Coded Allergies: No Known Allergies (Unverified , 11/18/18) OLENA TONY DO Mar 09, 2019 10:08
[2019-03-09] MEDS: hydrOXYzine 25 MG TAB PO PRN (12:09)
--- NOTE | 2019-03-09 12:53 | HPEPDOC ---
[facility] Medical History & Physical Date of Admission Mar 08, 2019 Date of Service: Mar 09, 2019 History and Physical CHIEF COMPLAINT: hearing voices HISTORY OF PRESENT ILLNESS: Patient is a 23M with no significant PMH presented to [facility] with complaints of hearing voices with reported thoughts of suicidal leanne ation. Stated that he heard voices putting him down for about an hour 2 days prior and had since resolved. He also complains of some muscle soreness from working out prior but otherwise denies any physical complaints including any pain, SOB, fever, chills. Also denies any current suicidal ideation. PAST MEDICAL HISTORY: Refer to [facility] PAST SURGICAL HISTORY: Surgery for short gut syndrome as an SOCIAL HISTORY: Denies tobacco, alcohol or illicit drug use. FAMILY HISTORY: Mother- DM and CAD ALLERGIES: Please see below. REVIEW OF SYSTEMS: 10 point review of system negative except as stated in HPI HOME MEDICATIONS: Please see below. PHYSICAL EXAMINATION: General: No acute distress, Alert Eyes: Normal sclera, EOMI, MILAD[place] HENT: Atraumatic, neck supple, moist mucous membranes Cardiovascular: Normal rate, normal rhythm. No murmurs appreciated. Pulmonary: Clear to auscultation b/l, no wheezing GI: Soft, nontender, nondistended Skin: Warm and dry Neuro: CN grossly intact. No focal deficits. Strengths equal b/l. Psych: oriented x 3 LABORATORY DATA: See below. MICROBIOLOGY: Please see below. ASSESSMENT AND PLAN: 1. Hallucinations - stress vs. anxiety/depression. - Evaluation and treatment per Psych. - Denies active suicidal ideation at this time. Patient has no physical complaints or known chronic medical problems. Will sign off, please call back should anything arise. Vital Signs Vital Signs Date Time Temp Pulse Resp B/P (MAP) Pulse Ox O2 Delivery O2 Flow Rate FiO2 03/09/19 10:19 Room Air 03/09/19 06:55 98.5 63 16 106/59 (75) 03/08/19 15:35 100 Home Medications Scheduled Sertraline HCl (Sertraline HCl) 25 Mg Tablet, 25 MG PO QHS Scheduled PRN Hydroxyzine HCl (Hydroxyzine HCl) 25 Mg Tablet, 25 MG PO Q6H PRN for ANXIETY Trazodone HCl (Trazodone HCl) 50 Mg Tablet, 50 MG PO QHS PRN for INSOMNIA Allergies Coded Allergies: No Known Allergies (Unverified , 11/18/18) A-FIB/CHADSVASC A-FIB History Current/History of A-Fib/PAF?: No SHIVANI PAPPAS MD Mar 09, 2019 12:53
[2019-03-09 17:04] VITALS: BP_SYST 117; BP_SYST 128; BP_DIAS 52; BP_DIAS 69
[2019-03-09] MEDS: SERTRALINE HCL 25 MG TABLET PO SCH (20:20)
[2019-03-09] MEDS: traZODone 50 MG TAB PO PRN (22:44)
[2019-03-10 05:52] VITALS: BP 126/56
--- NOTE | 2019-03-10 09:50 | MHIPNPDOC ---
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 The patient is admitted out of an abundance of caution, has his chain of command does report that he is quite isolative and does not engage. The patient was recently admitted due to similar problem started on sertraline. The patient when met with does describe some vague symptoms of depression such as hopelessness, helplessness, insomnia, and difficulty coping with stressors. When I met with the patient interestingly enough he had reported that he had no side effects from his sertraline once he had came to our unit. He has been more social and engaged with other patients on the unit. However, he does still have a dysthymic affect at times. He reports fleeting suicidal thoughts at times. There has been concerns raised that he could be presenting for secondary gain as he is potentially being discharged from the under article 15 for forgery. The patient reports vague auditory hallucinations that he is unable to describe that does appear consistent with any psychotic phenomenon. Otherwise, the patient reports that he is amenable to staying over the weekend. Interval History The patient is met with today. He reports that he is doing somewhat better and that his suicidal ideation is slowly resolving. He still reports feeling depressed and hopeless at times and that he had found that one of his family members had , making him more upset. He has had no major behavioral problems. He has been compliant with treatment and has been attending groups consistently. Review Of Systems General: Denies fever or appetite changes Cardiovascular: Denies Chest pain or palpitations GI: Denies Nausea, vomiting, or bowel changes Respiratory: Denies shortness of breath or cough Neuro: Denies dizziness, tremors Derm: Denies any rashes or pruritus : Denies any dysuria or urinary problems MSK: Denies any muscle tightness or stiffness HEENT: Denies any vision changes or headaches Heme/Lymph: denies any bruising or bleeding Endo: denies any cold/heat intolerance or water intake changes Psychotherapy None on this visit. Vital Signs Reviewed. Mental Status Examination General: Well dressed with good hygiene Speech: Spontaneous and fluid Thought processes: Linear and logical MSK: Smooth and coordinated gait, no signs of tremors or involuntary orofacial movements Thought content: Mild hopelessness. Abstract reasoning, and computation: Intact Description of associations: Intact Description of abnormal or psychotic thoughts: Denies SI at this time. Denies homicidal ideation. Denies auditory or visual hallucinations Judgment: fair Insight: fair Orientation: Alert and orientated 3 Cognition: Grossly normal Recent and remote memory: Intact Attention span and concentration: Intact Fund of knowledge: Adequate Mood: "okay" Affect: Mildly dysthymic with a constricted range. Diagnoses Unspecified depressive disorder. Assessment and Plan Unspecified depressive disorder: Will consider discontinuing sertraline as patient does report some mild sweating at times, which is unclear as to the cause. Highly unlikely to be sertraline, but the patient also has concerns for malingering. Thus caution will be taken to use objective signs. Continue hydroxyzine, trazodone. Disposition The patient will need a further inpatient admission in order to treat his depression and to plan a safe discharge. Time Spent 15 minutes [id number]. Vital Signs Vital Signs Date Time Temp Pulse Resp B/P (MAP) Pulse Ox O2 Delivery O2 Flow Rate FiO2 03/10/19 05:52 98.5 64 18 126/56 (79) 03/09/19 17:04 100 Room Air Current Medications Current Medications Medications (Trade) Dose Ordered Sig/Sunshine Route PRN Reason Start Time Stop Time Status Last Admin Dose Admin Acetaminophen (Tylenol Tab) 650 mg Q6HP PRN PO HEADACHE or DISCOMFORT 03/08/19 15:00 Al Hydrox/Mg Hydrox/Simethicone (Mylanta) 30 ml Q4HP PRN PO HEARTBURN/INDIGESTION 03/08/19 15:00 Home Med (Med Rec Complete!) ASDIRECTED XX 03/08/19 14:45 03/08/19 14:38 DC Hydroxyzine HCl (Atarax) 25 mg Q6H PRN PO ANXIETY 03/08/19 15:00 03/09/19 12:09 Magnesium Hydroxide (Milk Of Magnesia) 30 ml DAILYPRN PRN PO CONSTIPATION 03/08/19 15:00 Sertraline HCl (Zoloft) 25 mg QHS PO 03/08/19 21:00 03/09/19 20:20 Trazodone HCl (Desyrel) 50 mg QHS PRN PO INSOMNIA 03/08/19 15:00 03/09/19 22:44 Allergies Coded Allergies: No Known Allergies (Unverified , 11/18/18) OLENA TONY DO Mar 10, 2019 09:50
[2019-03-10] MEDS: NICOTINE 21MG/24HR 1 EA TRANSDERMAL TD SCH (12:26)
[2019-03-10 16:11] VITALS: BP 122/64
[2019-03-10] MEDS: SERTRALINE HCL 25 MG TABLET PO SCH (20:58)
[2019-03-10] MEDS: traZODone 50 MG TAB PO PRN (22:45)
[2019-03-11 06:31] VITALS: BP 126/71
[2019-03-11] MEDS: NICOTINE 21MG/24HR 1 EA TRANSDERMAL TD SCH (08:25)
[2019-03-11] MEDS: hydrOXYzine 25 MG TAB PO PRN ×2 (10:12→16:37)
--- NOTE | 2019-03-11 10:59 | MHIPNPDOC ---
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 The patient is admitted out of an abundance of caution, has his chain of command does report that he is quite isolative and does not engage. The patient was recently admitted due to similar problem started on sertraline. The patient when met with does describe some vague symptoms of depression such as hopelessness, helplessness, insomnia, and difficulty coping with stressors. Interval History The patient was met with today. He reports that after his aunt's passing, he does have some increased depression, but no suicidal ideation. He reports that he is feeling still sweaty and having difficulties with perspiration which appeared to be primarily anxiety related. The patient reports that he has been attending to groups. Staff report he has been otherwise pleasant with no behavioral problems. He reports that he doesn't feel a sertraline is helpful and that his anxiety medication is not as helpful either. Additionally, he reports the trazodone is not helpful for his sleep. Review Of Systems General: Denies fever or appetite changes Cardiovascular: Denies Chest pain or palpitations GI: Denies Nausea, vomiting, or bowel changes Respiratory: Denies shortness of breath or cough Neuro: Denies dizziness, tremors Derm: Denies any rashes or pruritus : Denies any dysuria or urinary problems MSK: Denies any muscle tightness or stiffness HEENT: Denies any vision changes or headaches Heme/Lymph: denies any bruising or bleeding Endo: denies any cold/heat intolerance or water intake changes Psychotherapy None on this visit. Vital Signs Reviewed. Mental Status Examination General: Well dressed with good hygiene Speech: Spontaneous and fluid Thought processes: Linear and logical MSK: Smooth and coordinated gait, no signs of tremors or involuntary orofacial movements Thought content: Mild hopelessness. Abstract reasoning, and computation: Intact Description of associations: Intact Description of abnormal or psychotic thoughts: Denies SI at this time. Denies homicidal ideation. Denies auditory or visual hallucinations Judgment: fair Insight: fair Orientation: Alert and orientated 3 Cognition: Grossly normal Recent and remote memory: Intact Attention span and concentration: Intact Fund of knowledge: Adequate Mood: "okay" Affect: Mildly dysthymic with an improving range Diagnoses Unspecified depressive disorder. Assessment and Plan Unspecified depressive disorder: To discontinue sertraline 25. Start venlafaxine 37.5 extended release. Discussed the risks, benefits, and potential side effects with patient. Change trazodone to Rozerem 8 mg. Continue hydroxyzine. Disposition Discharge planned for Thursday after further observation and medication titration. Time Spent 15 minutes. Thursday Vital Signs Vital Signs Date Time Temp Pulse Resp B/P (MAP) Pulse Ox O2 Delivery O2 Flow Rate FiO2 03/11/19 06:31 98.7 74 16 126/71 (89) 03/10/19 10:55 Room Air 03/09/19 17:04 100 Current Medications Current Medications Medications (Trade) Dose Ordered Sig/Sunshine Route PRN Reason Start Time Stop Time Status Last Admin Dose Admin Acetaminophen (Tylenol Tab) 650 mg Q6HP PRN PO HEADACHE or DISCOMFORT 03/08/19 15:00 Al Hydrox/Mg Hydrox/Simethicone (Mylanta) 30 ml Q4HP PRN PO HEARTBURN/INDIGESTION 03/08/19 15:00 Home Med (Med Rec Complete!) ASDIRECTED XX 03/08/19 14:45 03/08/19 14:38 DC Hydroxyzine HCl (Atarax) 25 mg Q6H PRN PO ANXIETY 03/08/19 15:00 03/11/19 10:12 Magnesium Hydroxide (Milk Of Magnesia) 30 ml DAILYPRN PRN PO CONSTIPATION 03/08/19 15:00 Nicotine (Nicoderm Cq 21mg) 1 patch DAILY TD 03/10/19 09:00 03/11/19 08:25 Sertraline HCl (Zoloft) 25 mg QHS PO 03/08/19 21:00 03/10/19 20:58 Trazodone HCl (Desyrel) 50 mg QHS PRN PO INSOMNIA 03/08/19 15:00 03/10/19 22:45 Allergies Coded Allergies: No Known Allergies (Unverified , 11/18/18) OLENA TONY DO Mar 11, 2019 10:59
[2019-03-11 16:38] VITALS: BP 132/76
[2019-03-11] MEDS ORDERED: OXAZEPAM 10 MG CAP PO ONE (18:00)
[2019-03-11] MEDS: RAMELTEON 8 MG TAB (ROZEREM) PO SCH (21:38)
--- NOTE | 2019-03-12 05:32 | REP ---
Clinical: Trauma. Technique: AP, lateral, bilateral oblique views right wrist . Findings: The carpal bones, surrounding osseous structures, soft tissues, and joint spaces are normal. There is no evidence for acute fracture or dislocation. No subcutaneous emphysema or radiodense foreign body. Impression: Normal wrist series. No acute fracture or dislocation. If the patient remains symptomatic consider reevaluation in 3-5 days including scaphoid view if necessary. Electronically Signed by Twan Pavon MD 03/12/2019 05:23 A
--- NOTE | 2019-03-12 05:33 | REP ---
Clinical: Trauma. Technique: AP, lateral, bilateral oblique views right hand . Findings: The osseous structures and joint spaces are intact and normal. There is no evidence for acute fracture or dislocation. Surrounding soft tissues are unremarkable. No subcutaneous emphysema or radiodense foreign body. Impression: Normal right hand series . No acute fracture or dislocation. Electronically Signed by Twan Pavon MD 03/12/2019 05:24 A
[2019-03-12 05:45] VITALS: BP 108/57
[2019-03-12] MEDS: NICOTINE 21MG/24HR 1 EA TRANSDERMAL TD SCH (08:11)
[2019-03-12] MEDS ORDERED: VENLAFAXINE **XR** 37.5 MG CAPSULE PO SCH (09:00)
--- NOTE | 2019-03-12 11:33 | MHIPNPDOC ---
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 The patient is admitted out of an abundance of caution, has his chain of command does report that he is quite isolative and does not engage. The patient was recently admitted due to similar problem started on sertraline. The patient when met with does describe some vague symptoms of depression such as hopelessness, helplessness, insomnia, and difficulty coping with stressors. Interval History The patient met with today. He reports that he is "potentially not ready" to be discharged on Thursday. He reports he has had some difficulties with his aunt, however, he does appear to be demonstrating some behavioral problems. It appears that he generally has been denying suicidal ideation to the majority of the staff and only seems to be more concerned as he reaches potential discharge. The patient reports that he still has sweating that is resistant to any anxiety treatment, although he paradoxically describes anxiety prior to the sweating as well. The patient reports that his mood appears generally the same since start of the Effexor, he has noticed some dizziness since starting it. He has it had any major behavioral problems, but did have an episode where he did punch a wall last evening in a series of frustration. The x-rays revealed no fractures. Review Of Systems General: Denies fever or appetite changes Cardiovascular: Denies chest pain, but admits to at times some palpitations with anxiety GI: Denies Nausea, vomiting, or bowel changes Respiratory: Denies shortness of breath or cough Neuro: Denies tremors Derm: Denies any rashes or pruritus : Denies any dysuria or urinary problems MSK: Denies any muscle tightness or stiffness HEENT: Denies any vision changes or headaches Heme/Lymph: denies any bruising or bleeding Endo: denies any cold/heat intolerance or water intake changes Psychotherapy None on this visit. Vital Signs Reviewed. Mental Status Examination General: Well dressed with good hygiene Speech: Spontaneous and fluid Thought processes: Linear and logical MSK: Smooth and coordinated gait, no signs of tremors or involuntary orofacial movements Thought content: Improved hopelessness Abstract reasoning, and computation: Intact Description of associations: Intact Description of abnormal or psychotic thoughts: Denies SI at this time. Denies homicidal ideation. Denies auditory or visual hallucinations Judgment: fair Insight: fair Orientation: Alert and orientated 3 Cognition: Grossly normal Recent and remote memory: Intact Attention span and concentration: Intact Fund of knowledge: Adequate Mood: "okay" Affect: Euthymic with a full range Diagnoses Unspecified depressive disorder. Assessment and Plan Unspecified depressive disorder: Discontinue Effexor, start Wellbutrin 150 mg extended release. Discussed risks, benefits and potential side effects with patient. Continue Rozerem 8 mg and hydroxyzine. Concern for patient potentially malingering as it appears that his suicidal ideation continues to be not present, although he continues to take statements that he is "not ready" to return. Discussion will need to be undertaken on Thursday about long-term treatment versus returning to his chain of command. It is unclear if he would benefit from longer term as he does present primarily with vague symptoms of depression. Observations on the unit appear to support that he is doing quite well and is very social going to groups and is quite talkative with other patients. Further examination will likely reveal whether he is attempting to malinger. Disposition Discharge on Thursday anticipated. Time Spent 15 minutes [id number]. Thursday Vital Signs Vital Signs Date Time Temp Pulse Resp B/P (MAP) Pulse Ox O2 Delivery O2 Flow Rate FiO2 03/12/19 05:45 98.3 68 16 108/57 (74) 03/10/19 10:55 Room Air 03/09/19 17:04 100 Current Medications Current Medications Medications (Trade) Dose Ordered Sig/Sunshine Route PRN Reason Start Time Stop Time Status Last Admin Dose Admin Acetaminophen (Tylenol Tab) 650 mg Q6HP PRN PO HEADACHE or DISCOMFORT 03/08/19 15:00 03/11/19 17:25 Al Hydrox/Mg Hydrox/Simethicone (Mylanta) 30 ml Q4HP PRN PO HEARTBURN/INDIGESTION 03/08/19 15:00 Home Med (Med Rec Complete!) ASDIRECTED XX 03/08/19 14:45 03/08/19 14:38 DC Hydroxyzine HCl (Atarax) 25 mg Q6H PRN PO ANXIETY 03/08/19 15:00 03/11/19 16:37 Magnesium Hydroxide (Milk Of Magnesia) 30 ml DAILYPRN PRN PO CONSTIPATION 03/08/19 15:00 Nicotine (Nicoderm Cq 21mg) 1 patch DAILY TD 03/10/19 09:00 03/12/19 08:11 Ramelteon (Rozerem) 8 mg QHS PO 03/11/19 21:00 03/11/19 21:38 Sertraline HCl (Zoloft) 25 mg QHS PO 03/08/19 21:00 03/11/19 13:03 DC 03/10/19 20:58 Trazodone HCl (Desyrel) 50 mg QHS PRN PO INSOMNIA 03/08/19 15:00 03/11/19 13:03 DC 03/10/19 22:45 Venlafaxine HCl (Effexor Xr) 37.5 mg DAILY PO 03/12/19 09:00 03/12/19 08:11 Allergies Coded Allergies: No Known Allergies (Unverified , 11/18/18) OLENA TONY DO Mar 12, 2019 11:33
[2019-03-12 16:15] VITALS: BP 136/71
[2019-03-12] MEDS: RAMELTEON 8 MG TAB (ROZEREM) PO SCH (20:05)
[2019-03-12] MEDS: hydrOXYzine 25 MG TAB PO PRN (20:05)
[2019-03-13 05:58] VITALS: BP 112/61
[2019-03-13] MEDS: buPROPion **XL** TABLET 150MG (WELLBUTRIN XL) PO SCH (08:26)
[2019-03-13] MEDS: NICOTINE 21MG/24HR 1 EA TRANSDERMAL TD SCH (08:28)
[2019-03-13] MEDS: hydrOXYzine 25 MG TAB PO PRN (15:08)
[2019-03-13 15:36] VITALS: BP 113/64
[2019-03-13] MEDS: RAMELTEON 8 MG TAB (ROZEREM) PO SCH (21:25)
[2019-03-14 06:21] VITALS: BP 101/51
[2019-03-14] MEDS: buPROPion **XL** TABLET 150MG (WELLBUTRIN XL) PO SCH (08:16)
[2019-03-14] MEDS: NICOTINE 21MG/24HR 1 EA TRANSDERMAL TD SCH ×2 (08:16→10:59)
[2019-03-14] MEDS: hydrOXYzine 25 MG TAB PO PRN (08:16)
[2019-03-14] MEDS ORDERED: NICO21PAT TD (10:32)
[2019-03-14] MEDS ORDERED: MELA3CAP2 PO (10:32)
--- NOTE | 2019-03-14 10:42 | MHDSPDOC ---
[facility] Discharge Summary Discharge Summary DATE OF ADMISSION: Mar 08, 2019 at 14:48 DATE OF DISCHARGE: 03/14/19 Discharge David Hogan MRN: N/A Date of : N/A Date of Service: 03/14/2019 Diagnoses Unspecified depressive disorder. 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 The patient is admitted out of an abundance of caution, has his chain of command does report that he is quite isolative and does not engage. The patient was recently admitted due to similar problem started on sertraline. The patient when met with does describe some vague symptoms of depression such as hopelessness, helplessness, insomnia, and difficulty coping with stressors. Consultants Involved Hospitalist/PCP screening Treatment and Progress On The Unit The patient was admitted to the inpatient unit, subsequently changed from sertraline after some observation to venlafaxine with poor results, then switched to Wellbutrin with reportedly poor results as well. The patient was notably social and engage, had been denying suicidal or homicidal ideation through the entirety of his stay and the distinct presence of potential secondary gain began to emerge as had been the concern on his previous admission. He appeared to be "worse" every time he approached discharge and on the day of discharge he had been denying suicidal or homicidal ideation, but stated that "I'm not ready." When asked specifically why, he was unable to describe any specifics, although observations on the unit indicate that he is quite social, attentive and attending groups fairly frequently. On the day of discharge, he did not meet involuntary criteria as he was denying suicidal or homicidal ideation. He did not demonstrate being overtly impaired by a mental disorder and was able to attend to his discharge meetings and schedule well. He did not meet criteria for further voluntary admission as it did not appear that he was suffering from a necessarily mental illness that was appropriate for a further inpatient stay as there were significant concerns he was malingering. Due to his inconsistent presentation, frequent nonspecific symptoms and great disparity between objective observations and subjective reports. Discharge Assessment 23-year-old man with a history of reported depression that presents with atypical nonspecific symptoms consistent with potential malingering who was treated with multiple different antidepressants with little to no effect. Objective signs and observations appear to demonstrate that the patient is much less depressed than he reports. He has been denying suicidal or homicidal ideation through his entire stay and currently does not meet further criteria for inpatient stay. Mental Status Examination General: Well dressed with good hygiene Speech: Spontaneous and fluid Thought processes: Linear and logical MSK: Smooth and coordinated gait, no signs of tremors or involuntary orofacial movements Thought content: Future orientated Abstract reasoning, and computation: Intact Description of associations: Intact Description of abnormal or psychotic thoughts: Denies any suicidal or homicidal ideation. Denies any auditory or visual hallucinations. Does not appear to be responding to internal stimuli. Does not appear to be endorsing any bizarre or paranoid ideation. Judgment: fair Insight: fair Orientation: Alert and orientated 3 Cognition: Grossly normal Recent and remote memory: Intact Attention span and concentration: Intact Fund of knowledge: Adequate Mood: "okay" Affect: Euthymic with a full range Follow Up The social work team worked during the predischarge meeting in order to evaluate for further issues of lethality address them fully before discharge. They worked on safety planning with the patient's family members in order to ensure that the patient will have a safe and effective discharge. Time Spent The amount of time spent in the coordination of care for this patient was approximately 60 minutes. Thursday Vital Signs/I&Os Vital Signs Date Time Temp Pulse Resp B/P (MAP) Pulse Ox O2 Delivery O2 Flow Rate FiO2 03/14/19 06:21 98.7 56 16 101/51 (68) Room Air 03/09/19 17:04 100 Medications Scheduled Melatonin (Melatonin) 3 Mg Capsule, 3 MG PO QHS for sleep for 30 Days, #30 Nicotine (Nicotine Patch) 21 Mg Patch.td24, 1 PATCH TD DAILY for tobacco for 30 Days, #30 Scheduled PRN Hydroxyzine HCl (Hydroxyzine HCl) 25 Mg Tablet, 25 MG PO Q6H PRN for ANXIETY, (Reported) Allergies Coded Allergies: No Known Allergies (Unverified , 11/18/18) OLENA TONY DO Mar 14, 2019 10:42
== END 2019-03-14 12:45 | disposition home or self-care (01) | DRG 881 ==
LOC: M ED 09:24 → M ED INP 14:48 → M PSY 15:29
PROVIDERS: ADMIT Psychiatry & Neurology Addiction Medicine; ATTEND Psychiatry & Neurology Addiction Medicine
DX: F32.9 Major depressive disorder, single episode, unspecified (principal); R44.0 Auditory hallucinations; Z79.899 Other long term (current) drug therapy; Z76.5 Malingerer [conscious simulation]; Z63.4 Disappearance and death of family member